=== PATIENT | male | born 1945 | race Caucasian/White ===

== ENCOUNTER 2016-09-05 10:33 | Emergency (ER) | payer MEDICARE, OTHER ==
[~2016-09-05 10:33] MED LIST: ARICEPT5 PO; ASAB PO; COZ50 PO; DIL4TAB PO; DURICEF PO; FISH OIL1200 MG PO; FISH-EPA1000 MG PO; GLUCOPHXR7 PO; GLUCPH; GLUCPH PO; HALF81 PO; LIPITOR10 PO; LIPITOR20 PO; LORTAB 5 PO; LORTAB10 PO; LUNESTA3 MG PO; LYRICA100 MG PO; LYRICA150 MG PO; MOBIC7.5 PO; MVI PO; NATURE THROID 32.5 MG PO; NORCO1 TAB PO; PR25 PO; PRAVAC PO; PRILO PO; PRIN10 PO; PROAIR HFA INH; PROTONIX PO; SPIRIVA RESPIMAT INH; SUCR PO; SYMBICORT 80/4.1 INH INH; VENTOLIN HFA INH; ZOFRAN4 PO
== END 2016-09-05 10:43 | disposition home or self-care (01) ==
LOC: ER 10:33
PROC: 0HCFXZZ Extirpation of Matter from Right Hand Skin, External Approach (ICD-10-PCS; principal; 2016-09-05)
DX: S60.551A Superficial foreign body of right hand, initial encounter (principal); Z79.82 Long term (current) use of aspirin; Z79.899 Other long term (current) drug therapy; W45.8XXA Other foreign body or object entering through skin, initial encounter
CPT/HCPCS: 90471; 90714; 99283